=== PATIENT | male | born 1960 | race Caucasian/White ===

== ENCOUNTER 2016-05-28 14:21 | Emergency (ER) | payer BC ==
[~2016-05-28 14:21] MED LIST: FLOMAX0.4 M1 PO; LORTAB 7.5-5001 TAB PO
== END 2016-05-28 14:30 | disposition home or self-care (01) ==
LOC: CED 14:21
DX: R33.9 Retention of urine, unspecified (principal); Z98.890 Other specified postprocedural states; Z79.899 Other long term (current) drug therapy
CPT/HCPCS: 51702; 99284